=== PATIENT | male | born 1960 | race Caucasian/White ===

== ENCOUNTER 2016-10-11 10:06 | Outpatient (CLI) ==
[2016-10-11 13:30] LABS: BASOPHILS % (AUTO) 0.4 % (0.0-3.0); EOSINOPHILS # (AUTO) 0.4 K/ul (0.0-0.7); EOSINOPHILS % (AUTO) 3.8 % (0.0-7.0); HEMATOCRIT 44.8 % (42.0-52.0); HEMOGLOBIN 15.5 g/dl (14.0-18.0); IMMATURE GRANULOCYTE % (AUTO) 0.3 % (0.0-5.0); LYMPHOCYTES # (AUTO) 3.3 K/uL (0.60-3.4); LYMPHOCYTES % (AUTO) 35.6 (10.0-50.0); MEAN CORPUSCULAR HEMOGLOBIN 32.8 pg (27.0-31.0); MEAN CORPUSCULAR HGB CONC 34.6 (31.8-35.4); MEAN CORPUSCULAR VOLUME 94.9 fl (80.0-94.0); MONOCYTES # (AUTO) 0.4 K/uL (0.4-2.0); MONOCYTES % (AUTO) 4.6 (0-10); NEUTROPHILS # (AUTO) 5.1 K/ul (2.0-6.9); NEUTROPHILS % (AUTO) 55.3; PLATELET COUNT 258 10^3/uL (140-440); RED BLOOD COUNT 4.72 10^6/ul (4.70-6.10); WHITE BLOOD COUNT 9.18 K/ul (4.2-10.2)
[2016-10-11 13:39] LABS: BILIRUBIN,URINE Negative (NEGATIVE); KETONES,URINE Negative (NEGATIVE); LEUKOCYTE ESTERASE ,URINE Negative (NEGATIVE); NITRITE,URINE Negative (NEGATIVE); PROTEIN,URINE Negative (NEGATIVE); URINE, BLOOD Negative (NEGATIVE)
[2016-10-11 13:46] LABS: ADD URINE MICROSCOPIC NO
[2016-10-11 13:49] LABS: ALBUMIN 4.2 g/dL (3.4-5.0); ALBUMIN/GLOBULIN RATIO 1.45; ANION GAP 17.8; BILIRUBIN,TOTAL 0.6 mg/dL (0.00-1.20); BUN/CREATININE RATIO 8.08; CALCIUM 9.9 mg/dL (8.2-10.2); CHOL/HDL RATIO 4.9 (4.5-6.4); CREATININE 0.99 mg/dL (0.60-1.10); POTASSIUM 3.8 mmol/L (3.5-5.1); TOTAL PROTEIN 7.1 g/dL (6.4-8.2)
== END 2016-10-11 10:07 | disposition home or self-care (01) ==
LOC: LAB 10:06
PROVIDERS: ATTEND General Practice
DX: M54.5 Low back pain (principal); E55.9 Vitamin D deficiency, unspecified; M25.50 Pain in unspecified joint; N18.3 Chronic kidney disease, stage 3 (moderate); E88.81 Metabolic syndrome and other insulin resistance; I73.9 Peripheral vascular disease, unspecified; D51.9 Vitamin B12 deficiency anemia, unspecified; G47.00 Insomnia, unspecified; Z79.899 Other long term (current) drug therapy
CPT/HCPCS: 36415; 80053; 80061; 81001; 82306; 85025

== ENCOUNTER 2016-10-12 11:21 | Outpatient (CLI) | END 2016-10-12 11:22 | disposition home or self-care (01) | LOC: LAB 11:21 | PROVIDERS: ATTEND General Practice | DX: J02.9 Acute pharyngitis, unspecified (principal) | CPT/HCPCS: 87651; 87880 ==

== ENCOUNTER 2017-04-27 08:27 | Outpatient (CLI) ==
[2017-04-27 12:39] LABS: BASOPHILS % (AUTO) 0.6 % (0.0-3.0); EOSINOPHILS # (AUTO) 0.2 K/ul (0.0-0.7); EOSINOPHILS % (AUTO) 4.5 % (0.0-7.0); HEMATOCRIT 44.3 % (42.0-52.0); HEMOGLOBIN 15.5 g/dl (14.0-18.0); IMMATURE GRANULOCYTE % (AUTO) 0.2 % (0.0-5.0); LYMPHOCYTES # (AUTO) 2.3 K/uL (0.60-3.4); LYMPHOCYTES % (AUTO) 43.7 (10.0-50.0); MEAN CORPUSCULAR HEMOGLOBIN 32.8 pg (27.0-31.0); MEAN CORPUSCULAR VOLUME 93.9 fl (80.0-94.0); MONOCYTES # (AUTO) 0.4 K/uL (0.4-2.0); MONOCYTES % (AUTO) 6.9 (0-10); NEUTROPHILS # (AUTO) 2.4 K/ul (2.0-6.9); NEUTROPHILS % (AUTO) 44.1; PLATELET COUNT 208 10^3/uL (140-440); RED BLOOD COUNT 4.72 10^6/ul (4.70-6.10); WHITE BLOOD COUNT 5.35 K/ul (4.2-10.2)
[2017-04-27 12:45] LABS: BILIRUBIN,URINE 1+ (NEGATIVE); KETONES,URINE Trace (NEGATIVE); LEUKOCYTE ESTERASE ,URINE Negative (NEGATIVE); NITRITE,URINE Negative (NEGATIVE); PH,URINE 5.5 (5-9); PROTEIN,URINE Trace (NEGATIVE); URINE, BLOOD Negative (NEGATIVE)
[2017-04-27 12:46] LABS: ADD URINE MICROSCOPIC YES
[2017-04-27 13:13] LABS: ALBUMIN 4.1 g/dL (3.4-5.0); ALBUMIN/GLOBULIN RATIO 1.41; ANION GAP 16.9; BILIRUBIN,TOTAL 0.68 mg/dL (0.00-1.20); CALCIUM 9.7 mg/dL (8.2-10.2); CHOL/HDL RATIO 7.4 (4.5-6.4); POTASSIUM 3.9 mmol/L (3.5-5.1)
== END 2017-04-27 08:28 | disposition home or self-care (01) ==
LOC: LAB 08:27
PROVIDERS: ATTEND General Practice
DX: N18.3 Chronic kidney disease, stage 3 (moderate) (principal); M10.9 Gout, unspecified; M54.5 Low back pain; E55.9 Vitamin D deficiency, unspecified; M25.50 Pain in unspecified joint; M25.471 Effusion, right ankle; Z79.899 Other long term (current) drug therapy; Z12.5 Encounter for screening for malignant neoplasm of prostate
CPT/HCPCS: 36415; 80053; 80061; 81001; 82306; 85025

== ENCOUNTER 2017-06-29 12:44 | Outpatient (CLI) ==
[2017-06-29 13:21] LABS: BASOPHILS % (AUTO) 0.5 % (0.0-3.0); BILIRUBIN,URINE 1+ (NEGATIVE); EOSINOPHILS # (AUTO) 0.2 K/ul (0.0-0.7); EOSINOPHILS % (AUTO) 2.6 % (0.0-7.0); HEMATOCRIT 39.3 % (42.0-52.0); HEMOGLOBIN 14.1 g/dl (14.0-18.0); IMMATURE GRANULOCYTE % (AUTO) 0.2 % (0.0-5.0); KETONES,URINE 1+ (NEGATIVE); LEUKOCYTE ESTERASE ,URINE Negative (NEGATIVE); LYMPHOCYTES # (AUTO) 2.8 K/uL (0.60-3.4); LYMPHOCYTES % (AUTO) 31.9 (10.0-50.0); MEAN CORPUSCULAR HEMOGLOBIN 32.9 pg (27.0-31.0); MEAN CORPUSCULAR HGB CONC 35.9 (31.8-35.4); MEAN CORPUSCULAR VOLUME 91.6 fl (80.0-94.0); MONOCYTES # (AUTO) 0.6 K/uL (0.4-2.0); MONOCYTES % (AUTO) 7.3 (0-10); NEUTROPHILS # (AUTO) 5.1 K/ul (2.0-6.9); NEUTROPHILS % (AUTO) 57.5; NITRITE,URINE Negative (NEGATIVE); PLATELET COUNT 258 10^3/uL (140-440); PROTEIN,URINE 1+ (NEGATIVE); RED BLOOD COUNT 4.29 10^6/ul (4.70-6.10); URINE, BLOOD Negative (NEGATIVE); WHITE BLOOD COUNT 8.81 K/ul (4.2-10.2)
--- NOTE | 2017-06-29 13:26 | DI ---
EXAM: Chest two view, frontal and lateral views. HISTORY: Preoperative clearance. COMPARISON: 01/19/2012. FINDINGS: The heart size is normal. Atherosclerotic calcifications are present. There is no pulmon gage vascular congestion. The lungs are clear. No pleural effusion or pneumothorax is seen. No acut e osseous abnormality identified. ACDF changes noted. Since the prior study, there has been no signi ficant interval change. IMPRESSION: No acute cardiopulmonary process.
[2017-06-29 13:27] LABS: ADD URINE MICROSCOPIC YES
[2017-06-29 13:40] LABS: PARTIAL THROMBOPLASTIN TIME 23.7 SEC (23.9-40.0); PROTHROMBIN TIME 9.1 SEC (9.3-11.0)
[2017-06-29 14:26] LABS: ALBUMIN 3.6 g/dL (3.4-5.0); ALBUMIN/GLOBULIN RATIO 1.09; ANION GAP 12.3; BILIRUBIN,TOTAL 0.4 mg/dL (0.00-1.20); BUN/CREATININE RATIO 13.18; CALCIUM 9.9 mg/dL (8.2-10.2); CREATININE 0.91 mg/dL (0.60-1.10); POTASSIUM 4.3 mmol/L (3.5-5.1); TOTAL PROTEIN 6.9 g/dL (6.4-8.2)
== END 2017-06-29 12:45 | disposition home or self-care (01) ==
LOC: LAB 12:44
PROVIDERS: ATTEND General Practice
DX: D51.9 Vitamin B12 deficiency anemia, unspecified (principal); E88.81 Metabolic syndrome and other insulin resistance; I73.9 Peripheral vascular disease, unspecified; D68.9 Coagulation defect, unspecified; Z79.899 Other long term (current) drug therapy; Z78.9 Other specified health status
CPT/HCPCS: 36415; 80053; 81001; 85025; 85610; 85730; 93005; 93010

== ENCOUNTER 2017-07-06 06:45 | Outpatient (CLI) ==
--- NOTE | 2017-07-06 12:36 | ECHO2D ---
Date of Exam: 07/06/17 Ordering Physician: VIRGIL MICHAEL Room #: OP Reason for Echo: ABNORMAL EKG M-Mode Normal Adult Results LV Dimensions Normal Adult Results AoV Opening excursions >1.6 >1.6 LVEDD-base- 3.5-5.8 5.0 Ao root dimensions 2.0-3.7 3.9 LVESD-base- 3.1-4.6 L. Atrium dimensions 1.9-3.8 3.2 Post. Wall thickness 0.8-1.1 1.2 IV septum (thickness) 0.7-1.2 1.2 Post. Wall excursion 0.72-1.3 NORMAL Septal motion NORMAL Systolic motion R. Ventricular cavity 1.5-2.0 NORMAL LVEF 60% 53% Paradoxical septal wall motion NORMAL 2-D : 2-D M Mode Echocardiogram was performed using apical four chamber and left parasternal long and short axis views. Mitral, tricuspid and aortic valves appear to be normal. Contractility of the left ventricle seems to be normal, so is the cavity size. Left atrial cavity size and aortic root appear to be normal. There is no pericardial effusion. There is no thrombus noted in the left ventricular or left aortic cavity. No mitral valve prolapse noted. M-MODE: MV: NORMAL AV: NORMAL TV: NORMAL PV: CHAMBER SIZE: NORMAL WALL MOTION: NORMAL PERICARDIUM: NORMAL INTERPRETATION: 1. BORDERLINE LEFT VENTRICULAR HYPERTROPHY 2. NORMAL VALVES 3. NORMAL LEFT VENTRICULAR CONTRACTILITY MTDD
== END 2017-07-06 06:46 | disposition home or self-care (01) ==
LOC: CAR 06:45
PROVIDERS: ATTEND General Practice
DX: R94.31 Abnormal electrocardiogram [ECG] [EKG] (principal)

== ENCOUNTER 2017-09-20 13:38 | Outpatient (CLI) | END 2017-09-20 13:39 | disposition home or self-care (01) | LOC: LAB 13:38 | PROVIDERS: ATTEND General Practice | DX: D51.9 Vitamin B12 deficiency anemia, unspecified (principal); E88.81 Metabolic syndrome and other insulin resistance; N18.3 Chronic kidney disease, stage 3 (moderate); E55.9 Vitamin D deficiency, unspecified; E78.5 Hyperlipidemia, unspecified; R73.09 Other abnormal glucose; Z79.899 Other long term (current) drug therapy | CPT/HCPCS: 36415; 80053; 80061; 81001; 82306; 83036; 85025 ==

== ENCOUNTER 2018-02-09 11:55 | Outpatient (CLI) ==
--- NOTE | 2018-02-09 13:37 | DI ---
EXAM: Single view of the pelvis. History: Right hip pain. Findings: No acute fracture or dislocation. Postsurgical changes of the lumbosacral spine. Bilater al hip joint spaces are relatively preserved. Bilateral sacroiliac joints appear intact. Impression: No acute osseous abnormality.
--- NOTE | 2018-02-09 13:41 | DI ---
EXAM: Five views of the lumbar spine. History: Right hip pain, lower back pain. Findings: Atherosclerotic vascular calcifications. Grossly intact posterior fusion hardware at L5-S 1. No acute fracture or subluxation. Mild to moderate disc space narrowing at L2-L3 with small oste ophytes. Mild disc space narrowing seen elsewhere. Impression: No acute osseous abnormality.
--- NOTE | 2018-02-13 12:53 | DI ---
EXAM: Radiographs, right hip HISTORY: Right hip pain. COMPARISON: None available. TECHNIQUE: Two views. FINDINGS: Bone mineralization is normal. There is no fracture or dislocation. The joint spaces are maintained. L5, S1 posterior lumbar interbody fusion changes are incompletely imaged. No focal sof t tissue abnormality is seen. IMPRESSION: No acute abnormality of the right hip.
== END 2018-02-09 11:56 | disposition home or self-care (01) ==
LOC: RAD 11:55
PROVIDERS: ATTEND General Practice
DX: M25.551 Pain in right hip (principal)

== ENCOUNTER 2018-03-29 13:13 | Outpatient (CLI) ==
--- NOTE | 2018-03-29 16:42 | MRI ---
EXAM: MRI lumbar spine without IV contrast. DATE: 03/29/2018. HISTORY: Low back pain. TECHNIQUE: Sagittal and axial T1W and T2W sequences of the lumbar spine along with sagittal IR and c oronal T2W sequences were obtained using 1.2 Ashlyn magnet. No IV contrast. COMPARISON: LS spine series 25 01/23/2018. CT L-spine 11/01/2012. FINDINGS: There are five [id number] lumbar vertebra. No lumbar scoliosis is evident. A 1.6 mm anterior subluxation of L5 relative to L4 is noted. No other subluxation, acute fracture, osseous m alignancy, or pars interarticularis defect is demonstrated. Lumbar vertebra are normal in height. T 2W/T1W bone marrow signal is overall normal. T2W/T1W bright, 7.2 mm focus in the T12 body and 9.3 mm focus in the L3 body are likely benign hemangiomas. Small Schmorl's node is observed at the L2 infe rior endplate. There is minor disc space narrowing at L4-5. Previous discectomy, interbody fusion p lug placement, and bilateral transpedicular screw fixation are seen at L5-S1. Each S1 transpedicular screw bridges the anterior cortex, with 8.7 mm right and 6.4 mm left screw extension beyond the ante rior cortex of S1. Both S1 screws appear to contact the medial wilcox of the respective right and lef t internal iliac veins. No venous occlusion or rupture is apparent. No sacral fracture or stress re action is seen. Tiny anterior osteophytes is noted the right SI joint. Conus medullaris terminates at T12-L1. Visible spinal cord is normal. No retroperitoneal lymphadenopathy, paraspinal mass, or aortic aneurysm is detected. Atherosclerotic plaques are present in the aortic wall. Psoas muscles are normal. There is mild to mild bilateral posterior paraspinal muscle atrophy. Visible portions of the liver, spleen, adrenal glands and kidne ys reveal no distinct abnormality. Segmental analysis: T11-12: Normal. T12-L1: Normal. L1-2: Tiny posterior disc bulge does not cause central stenosis or foraminal stenosis. L2-3: Minor concentric disc bulge causes minor right and mild left foraminal stenoses. No central c anal stenosis. L3-4: Minor posterior to left foraminal disc bulge and minor facet arthropathy cause minor bilateral foraminal narrowing. There are tiny facet effusions. No central canal stenosis. L4-5: Minimal anterolisthesis of L4, small consent disc bulge, mild facet arthropathy, and minor lig amentum flavum hypertrophy cause mild bilateral foraminal narrowing. Right L4 nerve root contacts th e disc bulge near the foramen. No central canal stenosis. L5-S1: S/P decompression laminectomies, discectomy, interbody fusion plug placement, and bilateral t ranspedicular screw fixation. T2W slightly bright, T1W intermediate signal the posterior inferior as pect of each foramen causes mild right and moderate left foraminal narrowing. No central canal steno sis. IMPRESSIONS: 1. S/P discectomy and fusion at L5-S1. Each S1 transpedicular screw extends beyond the cortex of the S1 body and appears to contact the medial wall of the respective common iliac vein. There is curren tly no evidence of venous obstruction or rupture. 2. Multilevel lumbar foraminal stenoses as described. Right L4 nerve root contacts the disc bulge n ear the lateral margin of the foramen, and could be a source for pain/radiculopathy. 3. No lumbar spine central canal stenosis. 4. Benign hemangiomas in T12 and L3 vertebra. 5. Moderate abdominal aortic atherosclerosis.
== END 2018-03-29 13:14 | disposition home or self-care (01) ==
LOC: RAD 13:13
PROVIDERS: ATTEND General Practice
DX: M54.5 Low back pain (principal); G89.29 Other chronic pain

== ENCOUNTER 2018-04-04 15:41 | Outpatient (CLI) | END 2018-04-04 15:42 | disposition home or self-care (01) | LOC: FCC-LAB 15:41 | PROVIDERS: ATTEND General Practice | DX: N18.3 Chronic kidney disease, stage 3 (moderate) (principal); E55.9 Vitamin D deficiency, unspecified; E88.81 Metabolic syndrome and other insulin resistance; I10 Essential (primary) hypertension; E78.5 Hyperlipidemia, unspecified; M25.50 Pain in unspecified joint | CPT/HCPCS: 36415; 80053; 80061; 81001; 85025 ==